=== PATIENT | female | born 1970 ===

== ENCOUNTER 2016-12-12 07:31 | Observation (INO) | payer MEDICAID ==
[2016-12-11 11:29] VITALS: BMI 30.9
[2016-12-12] MEDS ORDERED: Succinylcholine 200 mg/10 ml Inj IV ONE (07:51)
[2016-12-12] MEDS ORDERED: Rocuronium 10 mg/ml (5 ml) ONE (07:51)
[2016-12-12] MEDS ORDERED: Midazolam 2 MG/2 ML VIAL ONE (07:51)
[2016-12-12] MEDS ORDERED: Propofol 10 mg/ml Inj (20 ML) ONE (07:51)
[2016-12-12] MEDS ORDERED: ePHEDrine 50 mg/ml Inj ONE (07:52)
[2016-12-12] MEDS ORDERED: Ferric Subsulfate Sol(60 mL) ONE (08:23)
[2016-12-12 08:25] LABS: HEMOGLOBIN 13.3 g/dL (12.0-16.0); MEAN CELL VOLUME 86.9 fl (81.0-99.0); MEAN CORPUSCULAR HEMOGLOBIN 29.1 pg (27.0-31.0); MEAN CORPUSCULAR HGB CONC 33.5 g/dL (33.0-37.0); RBC 4.59 Mil/uL (3.80-5.20); RED CELL DISTRIBUTION WIDTH 14.6 % (11.5-14.5); WHITE BLOOD COUNT 7.7 K/uL (4.8-10.8)
[2016-12-12 08:35] LABS: BLOOD UREA NITROGEN 15 mg/dl (7-17); CALCIUM 9.2 mg/dL (8.4-10.2); GFR AFRICAN-AMERICAN > 60; GFR NON-AFRICAN AMERICAN > 60
[2016-12-12] MEDS ORDERED: Dexamethasone 4 mg/1 ml ONE (09:42)
[2016-12-12] MEDS ORDERED: Ferric Subsulfate Sol(60 mL) TP ONE (10:15)
[2016-12-12] MEDS ORDERED: Lactated Ringer's 1,000 ML IV ONE ×3 (10:28→19:27)
[2016-12-12] MEDS: HYDROmorphone 0.5 mg/0.5 ml ISec IVP PRN ×4 (11:15→12:35)
[2016-12-12] MEDS ORDERED: Oxycodone/Acetaminophen 5/325 mg Tab ONE (13:43)
[2016-12-12] MEDS: Oxycodone/Acetaminophen 5/325 mg Tab PO ONE ×2 (13:45→14:20)
--- NOTE | 2016-12-12 13:52 | HP ---
DATE: 12/12/2016 HISTORY OF PRESENT ILLNESS: This is a 45-year-old G5, P3-0-2-3 with last menstrual period of 11/14/2016 (lasted >2 weeks), who is being admitted to the hospital today for a scheduled hysteroscopic myomectomy. The patient reports that she bleeds for about at least 2 weeks out of the month. The patient reports that she uses about 3 Always overnight pads a day. The patient reports that she had the Mirena placed at [facility] on 03/2016 and reports that in the past when she had had a prior Mirena in place, her bleeding was a lot less. The patient also reports that she is having a lot of abdominal pain for months. She describes the pain as sometimes stabbing pain, and stated that the pain is worse when her bleeding is heavier. The patient reports that she is taking naproxen 500 mg about 4 times a day or every 6 hours for this pain. PAST MEDICAL HISTORY: Acne and seasonal allergies. In the past, she was hospitalized for pneumonia in 11/1987 and in 11/2014. PAST SURGICAL HISTORY: She had a sewing needle in her back and they could not get it out, in 1975. MEDICATIONS: Doxycycline hyclate 50 mg at bedtime for acne and she also is taking naproxen 500 mg 4 times a day, and she also has the Mirena in place, which has been in place since 03/2016. FAMILY HISTORY: Her father is alive and has hypertension. She does have maternal aunt with ovarian cancer ?diagnosis in her 30s. SOCIAL HISTORY: The patient is . She denies smoking, and she reports that she drinks just a few drinks a few times a month. She denies drug use. GYNECOLOGIC HISTORY: The patient bleeds at least 2 weeks out of the month as above. She has had an abnormal pap smear in 2012. She had positive HPV. The patient denies any history of any STDs. OBSTETRIC HISTORY: The patient has undergone 3 vaginal deliveries and has had 2 miscarriages. In the past, she was hospitalized for pneumonia in 11/1987 and also hospitalized for pneumonia in 11/2014. ALLERGIES: No known drug allergies. PHYSICAL EXAMINATION: VITAL SIGNS: Afebrile. Vital signs stable. ABDOMEN: Soft; nontender. EXTREMITIES: Nontender. IMAGING: Pelvic ultrasound, on 11/01/2016, revealed that the uterus is 10 x 5.5 x 4.5 cm. The fundus is anteverted. The myometrium is heterogenous. There was a submucosal uterine body myoma measuring 1.2 x 1.3 x 1.2 cm without significant change from the prior ultrasound that was done in 07/18/2016, where it was described she had a heterogenous uterus with a 1.5 cm submucosal fibroid. The u/s also revealed that the IUD was in place. Her endometrium is otherwise unremarkable with a maximum thickness of 1.3 cm. The ovaries appeared normal. ASSESSMENT AND PLAN: This is a 45-year-old 5, para 3-0-2-3 with last menstrual period of 11/14/2016, who is not currently bleeding, who is scheduled today for a hysteroscopic myomectomy, possible IUD replacement, for menometrorrhagia and a known submucosal fibroid. Tommy Bojorquez MD MTDMaurice
[2016-12-12] MEDS ORDERED: Oxycodone/Acetaminophen 5/325 mg Tab PO ONE (14:15)
[2016-12-12 14:25] LABS: HEMOGLOBIN 13.6 g/dL (12.0-16.0); MEAN CELL VOLUME 86.8 fl (81.0-99.0); MEAN CORPUSCULAR HEMOGLOBIN 29.2 pg (27.0-31.0); MEAN CORPUSCULAR HGB CONC 33.7 g/dL (33.0-37.0); RBC 4.65 Mil/uL (3.80-5.20); RED CELL DISTRIBUTION WIDTH 14.7 % (11.5-14.5); WHITE BLOOD COUNT 11.2 K/uL (4.8-10.8)
[2016-12-12] MEDS: Labetalol 5 mg/ml Inj 20ML IVP PRN ×2 (15:55→16:35)
--- NOTE | 2016-12-12 15:58 | CP.PCM.CON ---
History of Present Illness - History of Present Illness History of Present Illness: Consulted by COMPONENT ASSEMBLER - Dr Bojorquez Chief Complaint: high blood pressure. HPI: 45 y/o lady with ? undiagnosed Hx of HTN ( previous visits with COMPONENT ASSEMBLER , BP had been elevated), and hx of Fibroids, underwent Hysteroscopy with Myomectomy and placement of IUD. Pre-op , pt's BP was noted to be elevated to 180 systolic. Post op in the Recovery room, she complained of headache and was noted to be hypertensive and tachycardic. BP was elevated to 186/100 and HR about 120. She was given a dose of Hydralazine 20 mg IV which decrease BP to 160/94. Her headache was described as occipital and throbbing and this slightly improved with the analgesics given and the icepack . Denies any neurologic deficit, no nausea nor vomiting. Denies CP, no SOB. Review of Systems - Review of Systems All systems: reviewed and no additional remarkable complaints except - Constitutional Constitutional: Headache. absent: Fever, Weakness - EENT Eyes: absent: Blurred Vision, Change in Vision, Diplopia Ears: absent: Decreased Hearing Nose/Mouth/Throat: absent: Nasal Congestion, Nasal Discharge - Cardiovascular Cardiovascular: absent: Chest Pain, Leg Edema, Lightheadedness, Orthopnea, Palpitations - Respiratory Respiratory: absent: Cough, Dyspnea, Dyspnea on Exertion - Gastrointestinal Gastrointestinal: Abdominal Pain. absent: Nausea, Vomiting - Genitourinary Genitourinary: absent: Dysuria - Musculoskeletal Musculoskeletal: Arthralgias. absent: Back Pain, Limited Range of Motion, Muscle Weakness, Numbness - Integumentary Integumentary: absent: Rash - Neurological Neurological: Headaches. absent: Confusion, Disequilibrium, Dizziness, Focal Weakness, Paresthesias, Radicular Pain, Sensory Deficit, Vertigo - Psychiatric Psychiatric: absent: Anxiety, Depression - Endocrine Endocrine: absent: Polydipsia, Polyphagia, Polyuria - Hematologic/Lymphatic Hematologic: absent: Easy Bleeding, Easy Bruising Past Patient History - Infectious Disease Hx of Infectious Diseases: None - Tetanus Immunizations Tetanus Immunization: Unknown - Past Medical History & Family History Past Medical History?: Yes Pertinent Family History: HTN, CABG- mother - Past Social History Smoking Status: Never Smoked Chewing Tobacco Use: No Cigar Use: No Alcohol: Occasional Drugs: Denies Home Situation {Lives}: With Family - CARDIAC Hx Cardiac Disorders: Yes Hx Hypertension: Yes - PULMONARY Hx Respiratory Disorders: No - NEUROLOGICAL Hx Neurological Disorder: No - HEENT Hx HEENT Problems: No - RENAL Hx Chronic Kidney Disease: No - ENDOCRINE/METABOLIC Hx Endocrine Disorders: No - HEMATOLOGICAL/ONCOLOGICAL Hx Blood Disorders: Yes Hx Anemia: Yes - INTEGUMENTARY Hx Dermatological Problems: No - MUSCULOSKELETAL/RHEUMATOLOGICAL Hx Musculoskeletal Disorders: No - GASTROINTESTINAL Hx Gastrointestinal Disorders: No - GENITOURINARY/GYNECOLOGICAL Hx Genitourinary Disorders: Yes Other/Comment: Fibroids - PSYCHIATRIC Hx Psychophysiologic Disorder: No - SURGICAL HISTORY Hx Surgeries: No Other/Comment: BACK SX AT AGE 5 YRS OLD - ANESTHESIA Hx Anesthesia: No Hx Anesthesia Reactions: No Hx Malignant Hyperthermia: No Has any member of the family had a problem w/ anesthesia?: No Meds Allergies/Adverse Reactions: Allergies Allergy/AdvReac Type Severity Reaction Status Date / Time No Known Allergies Allergy Verified 11/06/16 11:55 - Medications Medications: Current Medications Labetalol HCl (Trandate) 5 mg IVP Q5M PRN PRN Reason: Systolic Blood Pressure Last Admin: 12/12/16 15:55 Dose: 5 mg Metoprolol Tartrate (Lopressor) 25 mg PO Q12 [facility] Oxycodone/Acetaminophen (Percocet 5/325 Mg Tab) 1 tab PO Q4 PRN PRN Reason: Pain, moderate (4-7) Stop: 12/15/16 15:43 Physical Exam - Constitutional Appears: No Acute Distress - Head Exam Head Exam: ATRAUMATIC, NORMAL INSPECTION, NORMOCEPHALIC - Eye Exam Eye Exam: EOMI, Normal appearance, PERRL Pupil Exam: NORMAL ACCOMODATION - ENT Exam ENT Exam: Mucous Membranes Dry, Normal External Ear Exam - Neck Exam Neck exam: Positive for: Full Rom. Negative for: Lymphadenopathy, Meningismus, Tenderness - Respiratory Exam Respiratory Exam: NORMAL BREATHING PATTERN. absent: Rales, Rhonchi, Wheezes, Respiratory Distress - Cardiovascular Exam Cardiovascular Exam: Tachycardia, REGULAR RHYTHM, +S1, +S2 - GI/Abdominal Exam GI & Abdominal Exam: Normal Bowel Sounds, Soft, Tenderness - Extremities Exam Extremities exam: Positive for: full ROM, normal capillary refill, normal inspection, pedal pulses present. Negative for: calf tenderness, pedal edema Additional comments: right shoulder area tenderness, slight pain on ROM - Back Exam Back exam: FULL ROM, NORMAL INSPECTION. absent: CVA tenderness (L), CVA tenderness (R), paraspinal tenderness - Neurological Exam Neurological exam: Alert, CN II-XII Intact, Oriented x3, Reflexes Normal - Psychiatric Exam Psychiatric exam: Normal Affect, Normal Mood - Skin Skin Exam: Dry, Normal Color, Warm Results - Vital Signs Recent Vital Signs: Last Vital Signs Temp 97.4 F L 12/12/16 10:45 Pulse 88 12/12/16 11:30 Resp 20 12/12/16 11:30 BP 154/105 H 12/12/16 11:30 Pulse Ox 99 12/12/16 11:30 - Labs Result Diagrams: 12/12/16 14:21 12/12/16 08:00 Labs: Laboratory Results - last 24 hr 12/12/16 12/12/16 12/12/16 08:00 08:00 08:00 WBC 7.7 RBC 4.59 Hgb 13.3 Hct 39.8 MCV 86.9 MCH 29.1 MCHC 33.5 RDW 14.6 H Plt Count 288 Sodium 142 Potassium 3.9 Chloride 106 Carbon Dioxide 25 Anion Gap 15 BUN 15 Creatinine 0.8 Est GFR ( Amer) > 60 Est GFR (Non-Af Amer) > 60 POC Glucose (mg/dL) Random Glucose 98 Calcium 9.2 Blood Type A POSITIVE Blood Type Confirm Antibody Screen Negative BBK History Checked No verified bt 12/12/16 12/12/16 12/12/16 09:09 14:21 15:32 WBC 11.2 H RBC 4.65 Hgb 13.6 Hct 40.3 MCV 86.8 MCH 29.2 MCHC 33.7 RDW 14.7 H Plt Count 299 Sodium Potassium Chloride Carbon Dioxide Anion Gap BUN Creatinine Est GFR ( Amer) Est GFR (Non-Af Amer) POC Glucose (mg/dL) 130 H Random Glucose Calcium Blood Type Blood Type Confirm A POSITIVE Antibody Screen BBK History Checked Assessment & Plan (1) Hypertensive urgency Status: Acute Comment: Pt may have underlying/undiagnosed HTN - (accdg to her COMPONENT ASSEMBLER , pt had elevated BP on previous outpt visits). BP prob worsened by pain, IVF, NSAIDs. Labetalol 5- 10 mg prn for BP greater 180 systolic. start low dose Metoprolol. Control pain. will avoid NSAIDs for now. Will monitor BP closely in Telemetry (2) Headache Status: Acute Comment: prob related to elevated BP, NPO status. start PO diet. control BP. Pain mgt (3) Tachycardia Status: Acute Comment: likely pt is dehydrated, she has deyvi NPO since yesterday and may also be due to pain. IVF hydration. denies CP, no SOB, saturation 100% on RA. BB may help control HR
[2016-12-12] MEDS: Oxycodone/Acetaminophen 5/325 mg Tab PO PRN ×3 (18:15→23:03)
[2016-12-12] MEDS: Lactated Ringer's 1,000 ML IV SCH (21:42)
--- NOTE | 2016-12-12 21:57 | US ---
EXAM: US Pelvis, Transvaginal CLINICAL HISTORY: 45 years old, female; Pain; Pelvic pain; Prior surgery; Surgery date: Post-operative (0-2 days); Surgery type: Iud placement today 12/12/2016; Additional info: S/P iud placement today TECHNIQUE: Real-time transvaginal pelvic ultrasound (complete) with image documentation. Transvaginal imaging was used for better evaluation of the endometrium and adnexa. COMPARISON: No relevant prior studies available. FINDINGS: Uterus/cervix: Uterus measures 9.6 x 5.8 x 6.5 cm in size. Heterogeneous uterus. No discrete myometrial mass. Endometrium: Up to 1.8 cm in thickness, heterogeneous. IUD in place. Right ovary: 2.5 x 1.0 x 3.2 cm in size. No mass. Small follicles. Normal flow. Left ovary: 2.8 x 1.8 x 2.4 cm in size. No mass. Small follicles. Normal flow. Free fluid: Small free fluid within pelvis. Bladder: Empty bladder which cannot be evaluated with this probe. IMPRESSION: 1. IUD placement. 2. Heterogeneous endometrium, nonspecific. 3. Small pelvic ascites. 4. Incidental/non-acute findings are described above.
[2016-12-12 22:05] LABS: INR 1.1 (0.9-1.2); PROTHROMBIN TIME 12.6 Seconds (9.8-13.1)
--- NOTE | 2016-12-12 22:39 | OP ---
PROCEDURE DATE: 12/12/2016 PREOPERATIVE DIAGNOSES: This is a 45-year-old 5, para 3-0-2-3 with menometrorrhagia, with known submucosal fibroid and Mirena in place. POSTOPERATIVE DIAGNOSES: This is a 45-year-old 5, para 30-2-3 with menometrorrhagia, with known submucosal fibroid and Mirena in place. PROCEDURE: 1. Dilation of the cervix. 2. Hysteroscopic myomectomy using MyoSure Device 3. Removal of Mirena intrauterine device. 4. Liletta intrauterine device placement. SURGEON: Tommy Bojorquez MD ANESTHESIOLOGIST: Jude Morejon MD FINDINGS: An anteverted uterus that was sounded to about 10 cm. There was a left lateral submucosal fibroid and a Mirena IUD in place that was wrapped with a blood clot. No adnexal masses palpated on exam. SPECIMENS: Pieces of submucosal fibroid and Mirena IUD ESTIMATED BLOOD LOSS: 20 mL. DEFICIT: 1000 mL. COMPLICATIONS: None. DESCRIPTION OF PROCEDURE: The patient was taken to the operating room with IV running. She was then placed under general anesthesia with LMA. A time-out had been done. She was then prepped and draped in the usual sterile fashion in the dorsolithotomy position. Her bladder was emptied with a red rubber catheter of about 100 mL of clear urine. A weighted speculum was placed in the posterior fornix of the vagina and a Mcbride was placed at the anterior wall of the vagina. A single tooth tenaculum was placed at the anterior lip of the cervix. The cervix was then gently dilated in an attempt to place the MyoSure XL scope. The MyoSure XL scope was placed into the external os but could not be placed past the internal os, so it was decided to use the smaller MyoSure scope. The smaller MyoSure scope was able to be placed through the internal os and into the uterine cavity and the findings were as noted above. Initially, the classic MyoSure was used to remove the large submucosal fibroid that was seen on the left lateral side of the endometrial cavity. Given that the Mirena IUD in place was covered with a blood clot, it was decided to remove that IUD and place a new IUD , so the Mirena was removed under direct visualization using the grasper placed with the MyoSure scope. The scope and the Mirena IUD were both removed from the uterus. The uterus was then sounded to about 10 cm and a Liletta IUD was placed without difficulty. The Liletta strings were cut. The tenaculum was removed from the cervix. Pressure was applied to the cervix with a sponge on a stick (Ring forceps) and hemostasis was noted. AstrinGyn was then applied on the tenaculum sites. All instruments were removed from the vagina. All counts were correct. The patient was then taken to recovery room in stable condition. Tommy Bojorquez MD MTDD
[2016-12-13] MEDS: Oxycodone/Acetaminophen 5/325 mg Tab PO PRN ×4 (04:05→13:20)
[2016-12-13] MEDS: Lactated Ringer's 1,000 ML IV SCH ×3 (04:18→18:04)
[2016-12-13] MEDS ORDERED: Pneumococcal 23-Valent Vaccine IM ONE (06:00)
[2016-12-13] MEDS ORDERED: Metoprolol Succinate 50 mg XL Tab PO SCH (09:00)
--- NOTE | 2016-12-13 10:14 | CP.PCM.PN ---
Subjective - Date & Time of Evaluation Date of Evaluation: 12/13/16 Time of Evaluation: 09:30 - Subjective Subjective: No fever Pt feels better headache better right sided chest pain and shoulder pain reproducible but she states this is better with the analgesics complains of diffuse abd pain but better than yesterday tolerating PO diet no N/V no nuchal rigidity. Objective - Vital Signs/Intake and Output Vital Signs (last 24 hours): Temp Pulse Resp BP Pulse Ox 98.3 F 72 18 136/80 98 12/13/16 08:18 12/13/16 08:31 12/13/16 08:18 12/13/16 08:31 12/13/16 08:18 Intake and Output: 12/13/16 12/13/16 06:59 18:59 Output Total 450 Balance -450 - Medications Medications: Current Medications Lactated Ringer's (Lactated Ringer's) 1,000 mls @ 125 mls/hr IV .Q8H [facility] Last Admin: 12/13/16 08:28 Dose: Not Given Labetalol HCl (Trandate) 5 mg IVP Q5M PRN PRN Reason: Systolic Blood Pressure Last Admin: 12/12/16 16:35 Dose: 5 mg Metoprolol Tartrate (Lopressor) 25 mg PO Q12 [facility] Last Admin: 12/13/16 08:31 Dose: 25 mg Oxycodone/Acetaminophen (Percocet 5/325 Mg Tab) 1 tab PO Q4 PRN PRN Reason: Pain, moderate (4-7) Stop: 12/15/16 15:43 Last Admin: 12/13/16 06:49 Dose: 1 tab Oxycodone/Acetaminophen (Percocet 5/325 Mg Tab) 2 tab PO Q4 PRN PRN Reason: pain 8-10 Stop: 12/15/16 18:52 Last Admin: 12/13/16 08:30 Dose: 2 tab - Labs Labs: 12/12/16 14:21 12/12/16 08:00 PT 12.6 Seconds (9.8-13.1) 12/12/16 21:35 INR 1.1 (0.9-1.2) 12/12/16 21:35 - Constitutional Appears: No Acute Distress - Head Exam Head Exam: ATRAUMATIC, NORMAL INSPECTION, NORMOCEPHALIC - Eye Exam Eye Exam: EOMI, Normal appearance, PERRL Pupil Exam: NORMAL ACCOMODATION - ENT Exam ENT Exam: Mucous Membranes Dry, Normal External Ear Exam - Neck Exam Neck exam: Positive for: Full Rom. Negative for: Lymphadenopathy, Meningismus, Tenderness - Respiratory Exam Respiratory Exam: NORMAL BREATHING PATTERN. absent: Rales, Rhonchi, Wheezes, Respiratory Distress - Cardiovascular Exam Cardiovascular Exam: normal rate, REGULAR RHYTHM, +S1, +S2 right sided chest wall - reproducible pain - GI/Abdominal Exam GI & Abdominal Exam: Normal Bowel Sounds, Soft, Tenderness - Extremities Exam Extremities exam: Positive for: full ROM, normal capillary refill, normal inspection, pedal pulses present. Negative for: calf tenderness, pedal edema Additional comments: right shoulder area tenderness, slight pain on ROM - Back Exam Back exam: FULL ROM, NORMAL INSPECTION. absent: CVA tenderness (L), CVA tenderness (R), paraspinal tenderness - Neurological Exam Neurological exam: Alert, CN II-XII Intact, Oriented x3, Reflexes Normal - Psychiatric Exam Psychiatric exam: Normal Affect, Normal Mood - Skin Skin Exam: Dry, Normal Color, Warm Assessment and Plan (1) Hypertensive urgency Status: Acute (2) Headache Status: Acute (3) Tachycardia Status: Acute (4) Chest wall pain Status: Acute - Assessment and Plan (Free Text) Assessment: 45 y/o lady , no significant PMH except for Fibroids , underwent Hysteroscopy with Myomectomy and IUD placement yesyerday - I was consulted by CUSTOMER QUALITY SPECIALIST bec of HTN. (1) Hypertensive urgency, resolved Status: Acute Pt may have underlying/undiagnosed HTN - (accdg to her CUSTOMER QUALITY SPECIALIST , pt had elevated BP on previous outpt visits). BP prob worsened by pain, IVF, NSAIDs . Pt also received Ephedrine in [place] Labetalol 5- 10 mg prn for BP greater 180 systolic. started low dose Metoprolol. Control pain. will avoid NSAIDs for now. monitored in Tele overnight - BP now controlled- 136/80 (2) Headache, improved prob related to elevated BP, NPO status. analgesics prn (3) Tachycardia, resolved Status: Acute likely pt is dehydrated, she has been NPO and may also be due to pain. IVF hydration. saturation 100% on RA. (4) Chest Wall Pain- musculoskeletal pain Pain reproducible EKG: nonsp ST T changes Troponin x 2 negative discussed with pt need to see her PMD/Cardio as outpt for further cardiac work up
[2016-12-13 10:52] LABS: BASO # 0.1 K/uL (0.0-0.2); BASO % 0.4 % (0.0-2.0); EOS % 0.2 % (0.0-4.0); HEMOGLOBIN 11.9 g/dL (12.0-16.0); LYMPH # 1.9 K/uL (1.0-4.3); LYMPH % 14.6 % (20.0-40.0); MEAN CELL VOLUME 87.9 fl (81.0-99.0); MEAN CORPUSCULAR HEMOGLOBIN 28.8 pg (27.0-31.0); MEAN CORPUSCULAR HGB CONC 32.8 g/dL (33.0-37.0); MEAN PLATELET VOLUME 9.1 fl (7.2-11.7); MONO # 0.8 K/uL (0.0-0.8); MONO % 6.3 % (0.0-10.0); NEUT # 10.3 K/uL (1.8-7.0); NEUT % 78.5 % (50.0-75.0); RBC 4.14 Mil/uL (3.80-5.20); WHITE BLOOD COUNT 13.1 K/uL (4.8-10.8)
[2016-12-13 10:59] LABS: BLOOD UREA NITROGEN 14 mg/dl (7-17); CALCIUM 8.5 mg/dL (8.4-10.2); GFR AFRICAN-AMERICAN > 60; GFR NON-AFRICAN AMERICAN > 60
--- NOTE | 2016-12-13 13:08 | CP.PCM.PN ---
Subjective - Date & Time of Evaluation Date of Evaluation: 12/13/16 Time of Evaluation: 13:06 - Subjective Subjective: Pt reports that she has diffuse abdominal pain, pain in chest, pain in right shoulder and RICHARD. Pt reports that she is tolerating regular diet, feels a little dizzy w/ walking. Pt reports that she only noticed blood with wiping after urination. Objective - Vital Signs/Intake and Output Vital Signs (last 24 hours): Temp Pulse Resp BP Pulse Ox 98.1 F 65 18 132/84 98 12/13/16 12:00 12/13/16 12:00 12/13/16 12:00 12/13/16 12:00 12/13/16 12:00 Intake and Output: 12/13/16 12/13/16 06:59 18:59 Output Total 450 Balance -450 - Medications Medications: Current Medications Lactated Ringer's (Lactated Ringer's) 1,000 mls @ 125 mls/hr IV .Q8H [facility] Last Admin: 12/13/16 08:28 Dose: Not Given Labetalol HCl (Trandate) 5 mg IVP Q5M PRN PRN Reason: Systolic Blood Pressure Last Admin: 12/12/16 16:35 Dose: 5 mg Metoprolol Tartrate (Lopressor) 25 mg PO Q12 [facility] Last Admin: 12/13/16 08:31 Dose: 25 mg Oxycodone/Acetaminophen (Percocet 5/325 Mg Tab) 1 tab PO Q4 PRN PRN Reason: Pain, moderate (4-7) Stop: 12/15/16 15:43 Last Admin: 12/13/16 06:49 Dose: 1 tab Oxycodone/Acetaminophen (Percocet 5/325 Mg Tab) 2 tab PO Q4 PRN PRN Reason: pain 8-10 Stop: 12/15/16 18:52 Last Admin: 12/13/16 08:30 Dose: 2 tab - Labs Labs: 12/13/16 10:43 12/13/16 10:43 PT 12.6 Seconds (9.8-13.1) 12/12/16 21:35 INR 1.1 (0.9-1.2) 12/12/16 21:35 - Constitutional Appears: Well, No Acute Distress - Cardiovascular Exam Additional comments: chest pain reproducible w/ palpation - GI/Abdominal Exam GI & Abdominal Exam: Soft Additional comments: Nontender, no rebound, no guarding - Exam Additional comments: No blood on pad - Extremities Exam Additional comments: NT, no edema - Neurological Exam Neurological Exam: Awake, Oriented x3 Assessment and Plan - Assessment and Plan (Free Text) Plan: 45 yo POD 1 s/p Hysteroscopic myomectomy w/ HTN and tachycardia in the recovery room Hgb 11.9, stable TV u/s done last night revealed IUD in place Internal medicine consult was ordered Pt was started on metoprolol tartrate 25 BID, will place rx in chart Pt has an appointment w/ Internal med doc on Fri., 12/16/2016 Pt encouraged to not use Naproxen at home as it may cause HTN Will give rx for limited amount percocet in chart, #20 Pt encouraged to walk w/ the nurse on the floor Pt may be discharged home when she is walking w/o any difficulty
[2016-12-13 15:38] VITALS: BP 152/86; PULSE 62; RESP 20; TEMP 98.2; O2SAT 99
--- NOTE | 2016-12-13 16:27 | CARD ---
APPROVED REPORT EKG Measurement Heart [id number] [place] [id number] <Conclusion> Normal sinus rhythm Nonspecific T wave abnormality Prolonged QT Abnormal ECG
== END 2016-12-13 18:30 | disposition home or self-care (01) ==
LOC: H.OPSURG 07:31 → H.TEL 15:13
PROVIDERS: ADMIT Obstetrics & Gynecology; ATTEND Obstetrics & Gynecology
DX: D25.0 Submucous leiomyoma of uterus (principal); I16.0 Hypertensive urgency; I97.89 Other postprocedural complications and disorders of the circulatory system, not elsewhere classified; R00.0 Tachycardia, unspecified; N92.1 Excessive and frequent menstruation with irregular cycle; I10 Essential (primary) hypertension; Z23 Encounter for immunization